=== PATIENT | female | born 1975 | race Caucasian/White ===

== ENCOUNTER → 2018-12-11 13:22 | Outpatient (CLI) | payer BC, SELFPAY ==
[2018-12-13 20:16] LABS: HPV Reflexed? NOT INDICATED
== END ==
PROVIDERS: Visit Provider Obstetrics & Gynecology
DX: Z12.4 Encounter for screening for malignant neoplasm of cervix (principal)
CPT/HCPCS: 88175; G0145

== ENCOUNTER → 2019-01-23 10:00 | Outpatient (CLI) | payer BC, SELFPAY ==
--- NOTE | 2019-01-23 10:03 | BI_ITS ---
MAMMOGRAPHY - BILATERAL SCREENING REASON FOR EXAM: Female, 43 years old. Routine annual screening examination. PERTINENT HISTORY: Aunt with breast cancer. TECHNIQUE: Digital bilateral breast tien (3D mammographic acquisition) in the CC and MLO projections. 2-D mediolateral oblique (MLO) and craniocaudad (CC) views of both breasts were obtained. CAD: Full Field Digital Mammography with Computer Added Detection was performed. COMPARISON: Comparison is made with prior study dated July 09, 2017. FINDINGS: Breast Composition: There are scattered areas of fibroglandular density. There are no dominant masses or suspicious calcifications. No other significant abnormalities are identified. There has been no significant change since the prior study. BI/SCREENING MAMM (CAD), BILAT IMPRESSION: Stable bilateral screening mammogram. Yearly follow-up mammogram recommended. (A) ASSESSMENT CATEGORY: BIRADS Category 1: Negative. A letter regarding these results will be sent to the patient by the facility within 30 days. Approximately 10% of breast cancers are not detected by mammography. A normal mammogram should not delay biopsy of a clinically suspicious abnormality. [id number] Electronically Signed: Gian Webb MD at 11:32 EST , Service support ,
== END ==
PROVIDERS: Referring Provider Obstetrics & Gynecology; Visit Provider Obstetrics & Gynecology
DX: Z12.31 Encounter for screening mammogram for malignant neoplasm of breast (principal)
CPT/HCPCS: 77063; 77067

== ENCOUNTER → 2020-09-27 | Outpatient (CLI) | payer BC, SELFPAY ==
[2020-10-05 09:14] LABS: HPV APTIMA, High Risk Positive (Negative)
[2020-10-05 16:20] LABS: HPV Reflexed? YES, CHARGE PATIENT
== END | disposition home or self-care (01) ==
LOC: LABSPEC 13:56
PROVIDERS: Visit Provider Student in an Organized Health Care Education/Training Program
DX: Z12.4 Encounter for screening for malignant neoplasm of cervix (principal)
CPT/HCPCS: 87624; 88175; G0145

== ENCOUNTER → 2020-11-08 08:39 | Outpatient (CLI) | payer BC, SELFPAY ==
--- NOTE | 2020-11-08 08:41 | BI_ITS ---
MAMMOGRAPHY - BILATERAL SCREENING REASON FOR EXAM: Female, 45 years old. Routine annual screening examination. PERTINENT HISTORY: Non-contributory. TECHNIQUE: Digital bilateral breast mariluz (3D mammographic acquisition) in the CC and MLO projections. 2-D mediolateral oblique (MLO) and craniocaudad (CC) views of both breasts were obtained. CAD: Full Field Digital Mammography with Computer Added Detection was performed. COMPARISON: Comparison is made with prior study dated 01/23/2019 and 07/09/2017. FINDINGS: Breast Composition: There are scattered areas of fibroglandular density. There are no dominant masses or suspicious calcifications. No other significant abnormalities are identified. There has been no significant change since the prior study. BI/SCREEN MAMM (CAD) W/MARILUZ BILAT IMPRESSION: Stable bilateral screening mammogram. Yearly follow-up mammogram recommended. (A) ASSESSMENT CATEGORY: BIRADS Category 1: Negative. A letter regarding these results will be sent to the patient by the facility within 30 days. Approximately 10% of breast cancers are not detected by mammography. A normal mammogram should not delay biopsy of a clinically suspicious abnormality. [id number] Electronically Signed: Gian Webb, at 9:34 EST , Service support ,
== END ==
PROVIDERS: Referring Provider Student in an Organized Health Care Education/Training Program; Visit Provider Student in an Organized Health Care Education/Training Program
DX: Z12.31 Encounter for screening mammogram for malignant neoplasm of breast (principal)
CPT/HCPCS: 77063; 77067

== ENCOUNTER 2020-12-22 09:58 | Day surgery (SDC) | payer BC, SELFPAY ==
[2020-12-16 11:25] LABS: Hematocrit 40.2 % (37-47); Hemoglobin 13.1 g/dL (12.0-15.0); Mean Corp Hgb Conc 32.6 g/dL (32-36); Mean Corpuscular Hgb 27.8 pg (27.0-32.0); Mean Corpuscular Volume 85.4 fL (81-99); Mean Platelet Vol. 9.9 fl (6.2-12.0); Platelet Count 436 K/mm3 (150-450); RBC Distribution Width CV 12.7 % (11.6-14.6); RBC Distribution Width SD 39.5 fl (35.1-43.9); Red Blood Count 4.71 M/mm3 (4.2-5.4); White Blood Count 8.7 K/mm3 (4.4-11.0)
--- NOTE | 2020-12-22 | IMM_PTH ---
PATIENT: TOI HORN LOC: [facility] [place][id number] AGE/SX: 45/F ROOM: RE12/22/[address]: Dr. Katherine Whitman, : 1975 BED: DIS: 12/22/2020 SPEC #: [id number] RECD: 12/26/20 13:37 STATUS: HERMELINDO REQ #: [id number] CHACHO: 12/22/20 00:[address]: Katherine Whitman DEPT: IMMUNOHISTOCHEMISTRY RECD BY: Suni Maynard ENTERED: 12/26/20 13:38 SP TYPE: IMMUNO OTHR DR: No Primary Care Phys Tissues: A - Uterine cervix, NOS Procedures: p16 (initial) KI-67 (add) PHYSICIAN & INSTITUTION [place] [id number] SPECIMEN INFORMATION: Tissue Source: A - Anterior cervix Clinical Info: Cervical high-risk HPV, HGSIL Specimen Number: [id number] CPT code: 52639, 65372 METHODOLOGY: Deparaffinized sections of prefer/formalin-fixed tissue or PAP/DQ stained slides are incubated with monoclonal/polyclonal antibodies/oligonucleotide probes. Localization is made via biotin free immunoperoxidase method. Appropriate controls are performed and reacted as expected. Results on target cell population are indicated in the following table: RESULTS: ANTIBODY / CLONE RESULT Block A1 P16 (E6H4) positive, focal block staining Ki-67 (30-9) positive, moderate These tests were developed and their performance characteristics determined by [facility]. They may not have been cleared or approved by the U.S. Food and Drug Administration. The FDA has determined that such clearance or approval is not necessary. The above immunohistochemical/dualISH markers are ordered and reviewed by the Pathologist. INTERPRETATION: A. Anterior cervix, biopsy: Focal moderate squamous dysplasia. SJ:arjun 12/27/2020
--- NOTE | 2020-12-22 07:17 | PCM.HPOB.BLA ---
History and Physical Date of Admission: 12/22/20 Surgical History and Physical Date: 12/22/2020 Name: CARMENZA HORN Age: 45 Date of : 1975 Carmenza Horn, a 45 year old female 2 0 0 0 2, presents for LEEP on December 22, 2020 at 12:00. LEEP for HSIL HPV positive. MEDICATIONS HISTORY: None MEDICAL HISTORY: history of abnormal paps, obesity ALLERGIES: NKDA Infections - Chicken pox, Mumps and HPV Illnesses - none Accidents - A/A 201 Hospitalizations - see surgery and Childbirth abnl paps; SOCIAL HISTORY: Alcohol Use - drinks occasionally Smoking - used to smoke but quit and Drugs - denies FAMILY HISTORY: Mother: Hypothyroidism. Maternal Grandmother: Ovarian cancer. Paternal Grandmother: Breast cancer. Paternal Aunt: Breast cancer. MENSTRUAL HISTORY: LMP Known?- DefiniteAmount/Duration - 5 days, Regularity - Regular, Frequency - monthly days, LMP - 12/06/20, Age Onset Menarche - 15 PAST PREGNANCIES: Total Pregnancies - 2; Full Term Pregnancies - 2; Premature - 0; Abortions, Induced - 0; Abortions, Spontaneous - 0; Ectopics - 0; Multiple Births - 0; Living Children - 2 SURGICAL HISTORY: 1. Colposcopy ; - 2. LEEP, ; - ROS: GENERAL - Denies fever, or chills SKIN - Denies skin changes EYES - Denies visual changes EARS - Denies difficulty hearing NOSE - Denies nasal congestion or bleeding MOUTH - Denies sore throat or difficulty swallowing NECK - Denies pain or swelling RESPIRATORY - Denies shortness of breath or wheezing CARDIOVASCULAR - Denies palpitations or chest pain GASTROINTESTINAL - Denies nausea, vomiting, diarrhea, constipation GENITOURINARY - Denies dysuria, frequency of urination, incontinence of urine MUSCULOSKELETAL - Denies joint or muscle pain NEUROLOGICAL - Denies localized numbness or weakness PSYCHIATRIC - Denies depression or anxiety ENDOCRINE - Denies heat or cold intolerance, weight loss or gain HEMATO-IMMUNOLOGIC - Denies excesive bleeding with cuts PHYSICAL EXAM BP- 148/88 Sitting, Right arm, large cuff Weight- 247.28617 lbs Height- 67.00 inch BMI:38.89 CONSTITUTIONAL - NAD, well nourished, and well developed SKIN - No rash, lesions, or ulcers HEENT - Normocephalic, PERRLA, EOMI NECK - No nodes, no nuchal rigidity and thyroid normal size and texture LYMPH NODES - Palpation of lymph nodes in neck and groins within normal limits LUNGS - CTA x2 without wheezes, crackles or rales CARDIAC - Regular rate and rhythm without rubs, murmurs, or gallops ABDOMEN - Without hepatosplenomegaly, distention, masses, rebound, or guarding; normal bowel sounds; no hernias EXTREMITIES - No edema or calf tenderness NEUROLOGICAL - Cranial nerves II-XII grossly intact PSYCHIATRIC - A and O to time, place, person, mood and affect External Genitial Vagina - non-tender without lesions Urethra/Urethral Meatus - non-tender Bladder - non-tender Vagina - vaginal kolb are pink and moist without loss of rugae and no evidence of atropy Cervix - without cervical motion tenderness and has normal size and features without evident lesions Uterus - 5-6 cm in size, mobile and nontender Adnexa - clear without massess or tenderness ASSESSMENT/PLAN: 1. 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 Planned for LEEP. R/B/A discussed. Risks of bleeding to the point of transfusion, infection, injury to surrounding tissue (bowel, bladder, vagina), VTE, ICU admission. Consents signed
[2020-12-22 10:28] VITALS: BP 164/94; PULSE 85; RESP 18; TEMP 36.6; O2SAT 100; BMI 37.2
[2020-12-22] MEDS: Lactated Ringers 1,000 ML 100 ML IV ×2 (10:40→13:15)
--- NOTE | 2020-12-22 11:30 | CONE_PTH ---
PATIENT: TOI [place]ORN [place] [facility] [place][id number] AGE/SX: 45/F ROOM: RE12/22/[address]: Dr. Katherine Whitman DO : 1975 BED: DIS: 12/22/2020 SPEC #: [id number] RECD: 12/22/20 13:05 STATUS: HERMELINDO QUIANA #: [id number] CHACHO: 12/22/20 11:[address]: Katherine Whitman DEPT: SURGICAL PATHOLOGY RECD BY: Edilma Denny ENTERED: 12/23/20 07:10 SP TYPE: Leep Cone MARIANELA DR: Marina Primary Care Phys Tissues: A - UTERINE CERVIX LEEP B - UTERINE CERVIX LEEP C - Endocervical Procedures: Surgery Specimen Level IV Surgery Specimen Level V HEADER OPERATION: LEEP cone PRE-OP DIAGNOSIS: Cervical high-risk HPV (DNA test positive); HGSIL TISSUE SUBMITTED: A - Anterior cervix, B - Posterior cervix, C - Endocervical curettings MICROSCOPIC DIAGNOSIS A. Anterior cervix, LEEP conization: Focal moderate squamous dysplasia with HPV changes (HGSIL and PRIMITIVO II). Moderate acute and chronic inflammation. Resection margins are free of dysplastic changes. See comment. B. Posterior cervix, LEEP conization: Negative for dysplasia. Moderate acute and chronic inflammation. C. Endocervical curettings: Fragments of benign endocervical mucosa, blood and mucous, negative for dysplasia. SJ:arjun 12/26/2020 COMMENT A. Immunohistochemistry ([id number]) for surrogate HPV marker (p16) supports the above diagnosis. This case has been reviewed in consultation with Dr. Valverde who concurs with the above diagnosis. MICROSCOPIC DESCRIPTION Slides are reviewed. GROSS DESCRIPTION A - Received in fixative is one container labeled with the patient's name and designated anterior cervix. The specimen consists of two glistening fragments of acevedo mucosa with attached submucosal tissue measuring in aggregate 2 x 2 x 0.8 cm. No distinct mass lesions are identified. The fragments are inked, serially sectioned and totally submitted in three cassettes. / AM:arjun 12/23/20 B - Received in fixative is one container labeled with the patient's name and designated posterior cervix. The specimen consists of a single irregular fragment of acevedo mucosa with attached submucosal tissue measuring 1.6 x 1.2 x 0.5 cm. No distinct mass lesions are identified. The specimen is inked, serially sectioned and totally submitted in two cassettes. / AM:arjun 12/23/20 C - Received in fixative is one container labeled with the patient's name and designated endocervical curettings. The specimen consists of multiple irregular fragments of acevedo mucoid tissue that in aggregate measure 1.5 x 0.4 x 0.1 cm. The specimen is totally submitted in one cassette. / SJ:arjun 12/23/20 TC:5 CPT: 52205 x2, 64312
[2020-12-22 12:21] LABS: Internal QC Validated? YES +Cl - CLEAR BKGD; Pregnancy, Urine Negative Negative
--- NOTE | 2020-12-22 12:48 | PCM.DC.LEE ---
Discharge Diet: No Restrictions Discharge Activity: Return to Normal Activity, May not drive while taking narcotic pain medications. May resume sexual activity in: 4-6 weeks Weight Bearing Status: Weight bearing as tolerated Call your doctor if you observe: Fever of 101 or Higher, Inability to have a bowel movement, Using more than one pad per hour Cleanse incision/area with: Soap & Water Allergies/Adverse Reactions: Allergies HAND COMPLEX CARE NURSE PRACTITIONER Allergy (Uncoded 12/15/20 10:16) Rash Medications to take at Discharge NK 12/15/20 Primary Care Physician: Care Physician,No Primary [Primary Care Provider] - Test Results: Test results from this visit will be discussed in further detail at your follow-up appointment, if applicable. Please Follow Up With: Katherine Whitman DO When: Scheduled post op visit Proposed Discharge Date: 12/22/20
--- NOTE | 2020-12-22 12:49 | OP.PCM_ITS ---
Report of Operation Date of Procedure: 12/22/20 Pre-Operative Diagnosis: High-grade squamous intraepithelial lesion, HPV p ositive Post-Operative Diagnosis: Same Surgery/Procedure Performed:: LEEP, endocervical curettage Description of Surgical Findings:: Normal-appearing external genitalia. Minimal uterine descensus. Lugol staining of cervix, no defects or lack of staining noted. Type of Anesthesia:: MAC/Supplemental Specimen's removed: Anterior cervix, posterior cervix Estimated Blood Loss (mL): 20 cc Fluids Replaced: 1000 cc Description of Procedure: Patient taken to the operating room placed under MAC anesthesia. Patient placed in the dorsal lithotomy position and prepped and draped in the usual sterile fashion. Coated speculum placed in the vagina of the cervix completed. Lugol's placed on cervix, with prior findings noted. Medium loop chosen. Anterior cervix removed in 2 pieces. Loop utilized to remove posterior cervix. ECC completed. Electrocautery utilized for cautery of the biopsy bed. Cervical dilator utilized to ensure opening of the cervical canal, which was noted to be patent. This was hemostatic. Monsel's placed in the biopsy bed as well. Coated speculum removed. At the end of the procedure all needle, lap, sponge counts correct x3. - Complications None
[2020-12-22 12:55] VITALS: BP 120/94; BP 164/94; PULSE 86; RESP 16; TEMP 36.6; O2SAT 100
[2020-12-22 13:00] VITALS: BP 134/89; BP 164/94; PULSE 85; RESP 16; O2SAT 100
[2020-12-22 13:05] VITALS: BP 140/76; BP 164/94; PULSE 85; RESP 16; O2SAT 99
[2020-12-22 13:10] VITALS: BP 147/89; BP 164/94; PULSE 86; RESP 16; TEMP 36.8; O2SAT 98
[2020-12-22 13:47] VITALS: BP 152/102; BP 164/94; PULSE 93; RESP 18; TEMP 36.5; O2SAT 99
== END 2020-12-22 14:04 | disposition home or self-care (01) ==
LOC: SDC 10:00 → AC 10:01
PROVIDERS: Anesthesiology; Referring Provider Student in an Organized Health Care Education/Training Program; Visit Provider Student in an Organized Health Care Education/Training Program
PROC: 0UBC7ZZ Excision of Cervix, Via Natural or Artificial Opening (ICD-10-PCS; CPT 57522; principal; 2020-12-22 11:15)
DX: N87.1 Moderate cervical dysplasia (principal)
CPT/HCPCS: 00940; 57522; 36415; 81025; 85027; 86850; 86900; 86901; 87426; 88305; 88307; 88341; 88342; C9803; J7120; J2405

== ENCOUNTER → 2021-09-18 | Outpatient (CLI) | payer BC, SELFPAY ==
[2021-09-22 13:33] LABS: HPV APTIMA, High Risk Negative (Negative)
== END | disposition home or self-care (01) ==
LOC: LABSPEC 13:53
PROVIDERS: Visit Provider Student in an Organized Health Care Education/Training Program
DX: Z12.4 Encounter for screening for malignant neoplasm of cervix (principal); R87.613 High grade squamous intraepithelial lesion on cytologic smear of cervix (HGSIL)
CPT/HCPCS: 87624; 88175; G0145

== ENCOUNTER → 2021-09-20 10:17 | Outpatient (CLI) | payer BC, SELFPAY ==
--- NOTE | 2021-09-20 10:25 | MRI_ITS ---
STUDY: BILATERAL BREAST MR WITHOUT AND WITH CONTRAST REASON FOR EXAM: Female, 46 years old. CHEK2 Mutation. TECHNIQUE: Multi-sequence multi-echo imaging of both breasts was performed with a dedicated breast coil. T1-weighted and T2-weighted images were performed before the administration of contrast. T1-weighted images were also performed after the administration of 22 ML IV DOTAREM without complications. COMPARISON: Screening mammogram dated 11/08/2020 showing fatty replacement. FINDINGS: RIGHT BREAST: The breast tissue is fatty with minimal background enhancement. There are no abnormal enhancing masses or areas of non-mass enhancement in the right breast. LEFT BREAST: The breast tissue is fatty with minimal background enhancement. There are no abnormal enhancing masses or areas of non-mass enhancement in the left breast. There are no enlarged or abnormal lymph nodes. There is no abnormality in the visualized regions of the chest or liver. MRI/Breast Bilateral W/O and W IMPRESSION: No abnormality of the breast MR examination with contrast. Annual screening mammogram recommended. CATEGORY: BIRADS Category 2: Benign. A letter regarding these results will be sent to the patient by the facility within 30 days. Electronically Signed: Raudel Colvin MD at 9:41 EDT , Service support ,
== END ==
PROVIDERS: Visit Provider Obstetrics & Gynecology
DX: Z15.01 Genetic susceptibility to malignant neoplasm of breast (principal)
CPT/HCPCS: 77049; A9575; A4216; C8908

== ENCOUNTER → 2022-07-17 | Outpatient (CLI) | payer BC, SELFPAY ==
--- NOTE | 2022-07-17 09:07 | BI_ITS ---
MAMMOGRAPHY - BILATERAL SCREENING 3-D TOMOSYNTHESIS REASON FOR EXAM: Female, 47 years old. SCREENING PERTINENT HISTORY: No significant family history. TECHNIQUE: 2-D mammograms and 3-D Tomosynthesis of the breast (s) were performed. CAD was performed. COMPARISON: 11/08/2020 FINDINGS: The breast composition is composed of scattered fibroglandular density. Scattered benign calcifications are seen. No dense spiculated masses or suspicious microcalcifications are identified. No architectural distortion is identified. There is no skin thickening or retraction. There has been no significant change since the prior study. BI/SCRN MAMM (CAD)W/MARILUZ BILAT IMPRESSION: No mammographic signs of malignancy. Routine yearly mammograms recommended. ASSESSMENT CATEGORY: BIRADS Category 1: Negative. A letter regarding these results will be sent to the patient by the facility within 30 days. FOLLOW UP RECOMMENDATION: Yearly follow up mammogram recommended. (A) Approximately 10% of breast cancers are not detected by mammography. A normal mammogram should not delay biopsy of a clinically suspicious abnormality. Electronically Signed: Jarod Hall MD at 16:29 EDT ,
== END | disposition home or self-care (01) ==
LOC: OPBI 09:05
PROVIDERS: Visit Provider Student in an Organized Health Care Education/Training Program
DX: Z12.31 Encounter for screening mammogram for malignant neoplasm of breast (principal)
CPT/HCPCS: 77063; 77067

== ENCOUNTER → 2022-10-15 | Outpatient (CLI) | payer BC, SELFPAY ==
[2022-10-15 12:53] LABS: Vitamin D,25 Hydroxy 20.1 ng/mL
[2022-10-15 12:58] LABS: T4 Free Direct 0.87 ng/dL (0.76-1.46); Thyroid Stim Hormone (TSH) 2.31 uIU/mL (0.358-3.74)
[2022-10-15 13:06] LABS: Hemoglobin A1c 5.5 % (3.8-5.6)
[2022-10-21 13:23] LABS: HPV Reflexed? NOT INDICATED
== END | disposition home or self-care (01) ==
LOC: WOBLAB 11:19
PROVIDERS: Visit Provider Student in an Organized Health Care Education/Training Program
DX: Z01.419 Encounter for gynecological examination (general) (routine) without abnormal findings (principal); Z12.4 Encounter for screening for malignant neoplasm of cervix
CPT/HCPCS: 36415; 82306; 83036; 84439; 84443; 88175; G0145